=== PATIENT | male | born 1940 | race Hispanic/Latino ===

== ENCOUNTER 2018-04-09 20:45 | Emergency (ER) | payer MEDICARE ==
[2018-04-09 23:21] LABS: #Eosinphils 0.3 thou/uL (0.0-0.7); #Lymphocytes 2.1 thou/uL (1.20-3.40); #Monocytes 0.4 thou/uL (0.11-0.59); #Neutrophils 2.1 thou/uL (1.40-6.50); %Basophils 0.6 % (0.0-1.0); %Eosinophils 6.7 % (0.0-10.0); %Lymphocytes 42.8 % (21.0-51.0); %Monocytes 8.8 % (0.0-10.0); %Neutrophils 41.1 % (42.0-75.0); Hemoglobin 12.1 g/dL (14.0-18.0); Mean Corpuscular HGB CONC 33.3 g/dL (32.0-36.0); Mean Corpuscular Hemoglobin 31.3 pg (27.0-31.0); Mean Corpuscular Volume 94.1 fL (78.0-98.0); Mean Platelet Volume 7.6 fL (7.4-10.4); Platelet Count 168 thou/uL (130-400); RBC Distribution Width 12.4 % (11.5-14.5); Red Blood Cell (RBC) Count 3.86 mill/uL (4.70-6.10)
[2018-04-09 23:39] LABS: Anion Gap 13 mmol/L (10-20); BUN (Urea Nitrogen) 21 mg/dL (8.4-25.7); Calc. Creatinine Clearance 0 mL/min (70-130); Calcium 9.4 mg/dL (7.8-10.44); Carbon Dioxide 24 mmol/L (23-31); Chloride 106 mmol/L (98-107); Estimated GFR-MDRD 55; Glucose 103 mg/dL (83-110); Potassium 3.9 mmol/L (3.5-5.1); Sodium 139 mmol/L (136-145)
[2018-04-10] MEDS ORDERED: Acetaminophen 325 MG TAB ONE (00:50)
--- NOTE | 2018-04-10 09:42 | RAD ---
TWO VIEWS RIGHT TIBIA AND FIBULA: DATE: 04/09/18. HISTORY: Ulcer medial aspect of distal right lower extremity. Increased swelling to right lower extremity. U lceration to right heel. FINDINGS: There is no evidence of a fracture or dislocation. No lytic or sclerotic osseous lesions are identif ied. Calcifications overlie the medial and lateral joint compartments, suggesting chondrocalcinosis. There are also osteophytes at the lateral joint compartment. Vascular calcifications are seen post erior to the knee. IMPRESSION: No acute osseous abnormality. POS: UZIEL
== END 2018-04-10 01:24 | disposition home or self-care (01) ==
LOC: ERS 20:45
DX: L97.511 Non-pressure chronic ulcer of other part of right foot limited to breakdown of skin (principal); M79.604 Pain in right leg; F32.9 Major depressive disorder, single episode, unspecified; F17.210 Nicotine dependence, cigarettes, uncomplicated; I10 Essential (primary) hypertension
CPT/HCPCS: 36415; 80048; 85025

== ENCOUNTER 2018-08-17 13:39 | Outpatient (CLI) | payer MEDICARE ==
--- NOTE | 2018-08-18 01:03 | HP ---
HISTORY OF PRESENT ILLNESS: Mr. Dean Champagne is a very pleasant 78-year-old gentleman, accompanied by his daughter, who presents to the [facility] for evaluation of an ulceration of the right anterior lower leg. The patient was last seen in the [facility]ound Center on 12/15/2011, also for a venous ulceration of the right anterior lower leg. The patient states that the ulceration now present was first noted two years ago. The patient is followed by Dr. Pickering, who referred the patient to the [facility]ound Center for further evaluation and treatment. The patient states that initially a cream was prescribed by Dr. Pickering for the treatment of his ulceration. He states that he has been performing dressing changes for his wound after cleansing with hydrogen peroxide. He states that the dressing changes consist of an [id number] antibiotic ointment followed by gauze secured with tape and more recently, gauze secured with Coban. PAST MEDICAL HISTORY: History of hypertension. PAST SURGICAL HISTORY: Negative. MEDICATIONS: The patient does not have a list of his medications with him today. ALLERGIES: NO KNOWN DIAGNOSED ALLERGIES. SOCIAL HISTORY: Social history is significant for tobacco use of one pack of cigarettes per day for 25 years. The patient admits to a heavy consumption of alcohol on the weekends in the past. He states that he stopped consuming alcohol 3 to 4 years ago. FAMILY HISTORY: Family history is significant for diabetes mellitus. The patient states that his father was diagnosed with diabetes mellitus. Family history is also significant for coronary artery disease. The patient states that his father was diagnosed with coronary artery disease. PHYSICAL EXAMINATION: VITAL SIGNS: Temperature 98.1, pulse 56, and blood pressure 161/69. GENERAL: This is an 78-year-old gentleman, sitting on a chair in the examination room, in no acute distress. HEENT: Normocephalic and atraumatic. NECK: No nuchal rigidity. CHEST: Clear to auscultation. CV: Regular rate and rhythm. ABDOMEN: Soft. EXTREMITIES: An ulceration of the right anterior lower leg is present, which measures approximately 6.0 x 3.5 cm. Granulation tissue is visible within the wound margins. No purulent drainage is associated with the wound. No erythema of the skin surrounding the wound is present. No maceration of the skin of the periwound is noted. A dorsalis pedis pulse or posterior tibial pulse is not palpable on the right. No significant edema of the right foot or lower leg is present on exam today. A dorsalis pedis pulse is palpable on the left. NEUROLOGIC: Grossly nonfocal. ASSESSMENT AND PLAN: 1. Varicose veins of right lower extremity with ulcer. The healing of the ulceration also appears to be complicated by arterial insufficiency. Arrangements will be made for evaluation by Cardiovascular Surgery. I will see Mr. Champagne again after evaluation and any necessary treatment is complete. In the meantime, dressing changes of Xeroform gauze, ABDs, Kerlix and an Tray bandage are to be performed three times per week after cleansing and irrigation. No antibiotics will be prescribed today based upon the appearance of the wound. The patient and his daughter understand and are in agreement with the preceding treatment plan. 2. History of hypertension. Job ID: [id number]
== END 2018-08-17 13:40 | disposition home or self-care (01) ==
LOC: WCC 13:39
PROVIDERS: ATTEND Family Medicine
DX: I83.018 Varicose veins of right lower extremity with ulcer other part of lower leg (principal); L97.919 Non-pressure chronic ulcer of unspecified part of right lower leg with unspecified severity; Z86.79 Personal history of other diseases of the circulatory system

== ENCOUNTER 2018-10-05 05:55 | Day surgery (SDC) | payer MEDICARE ==
[2018-10-04 11:28] VITALS: BMI 29.7
[2018-10-05 06:39] LABS: #Basophils 0.1 thou/uL (0.0-0.2); #Eosinphils 0.3 thou/uL (0.0-0.7); #Lymphocytes 2.1 thou/uL (1.20-3.40); #Monocytes 0.6 thou/uL (0.11-0.59); #Neutrophils 3.3 thou/uL (1.40-6.50); %Basophils 0.9 % (0.0-1.0); %Eosinophils 4.6 % (0.0-10.0); %Lymphocytes 33.5 % (21.0-51.0); %Neutrophils 51.9 % (42.0-75.0); Hemoglobin 12.8 g/dL (14.0-18.0); Mean Corpuscular HGB CONC 31.5 g/dL (32.0-36.0); Mean Corpuscular Hemoglobin 29.5 pg (27.0-31.0); Mean Corpuscular Volume 93.7 fL (78.0-98.0); Mean Platelet Volume 8.1 fL (7.4-10.4); Platelet Count 184 thou/uL (130-400); RBC Distribution Width 12.3 % (11.5-14.5); Red Blood Cell (RBC) Count 4.35 mill/uL (4.70-6.10); White Blood Cell (WBC) Count 6.3 thou/uL (4.8-10.8)
[2018-10-05 06:57] LABS: Anion Gap 12 mmol/L (10-20); BUN (Urea Nitrogen) 24 mg/dL (8.4-25.7); Calc. Creatinine Clearance 55 mL/min (70-130); Calcium 10.2 mg/dL (7.8-10.44); Carbon Dioxide 24 mmol/L (23-31); Chloride 106 mmol/L (98-107); Estimated GFR-MDRD 55; Glucose 88 mg/dL (83-110); Potassium 4.3 mmol/L (3.5-5.1); Sodium 138 mmol/L (136-145)
[2018-10-05] MEDS ORDERED: Fentanyl 100 MCG/2 ML VIAL ONE (07:20)
--- NOTE | 2018-10-05 10:31 | OP ---
DATE OF PROCEDURE: 10/05/2018 PREOPERATIVE DIAGNOSIS: Nonhealing ulcer, right leg. PROCEDURE PERFORMED: Aortogram, bilateral lower extremity runoff. ANESTHESIA: 1% lidocaine. CONTRAST: 40 mL. FLUOROSCOPY: 5 minutes. DESCRIPTION OF PROCEDURE: After prepping and draping the left groin, infiltration with lidocaine was completed. Ultrasound-guided puncture of the common femoral artery was performed. There was good amount of plaque visible. 5-Welsh dilator and sheath were placed following which the runoff of the left leg was obtained through the sheath. Contra catheter was then advanced into the aorta and contrast injections performed. Following which, a RIM catheter was used to guide the wire over the iliac bifurcation. The rim catheter was then exchanged for a glide catheter, which was advanced into the external iliac artery and runoff of the right leg obtained. FINDINGS: The patient had diffuse atherosclerotic changes of aortoiliac segments with the only significant lesion being an 80% stenosis at the junction of the right external and common femoral artery. Both superficial femoral arteries were occluded at their origins and reconstituted distally in the proximal popliteal artery. On the left leg, there appeared to be 3-vessel runoff and on the right leg, a large posterior tibial constituted the runoff and the anterior tibial appeared to be occluded and filled from collaterals throughout the lower leg. The patient tolerated the procedure. Job ID: [id number]
[2018-10-05] MEDS ORDERED: Iopamidol 370 76% 50 ML VIAL FS ONE (16:41)
== END 2018-10-05 14:50 | disposition home or self-care (01) ==
LOC: CCL 05:55
PROVIDERS: ATTEND Thoracic Surgery (Cardiothoracic Vascular Surgery)
PROC: B41D1ZZ Fluoroscopy of Aorta and Bilateral Lower Extremity Arteries using Low Osmolar Contrast (ICD-10-PCS; principal; 2018-10-05)
DX: I70.239 Atherosclerosis of native arteries of right leg with ulceration of unspecified site (principal); L97.919 Non-pressure chronic ulcer of unspecified part of right lower leg with unspecified severity; F17.210 Nicotine dependence, cigarettes, uncomplicated; I10 Essential (primary) hypertension; Z79.82 Long term (current) use of aspirin; Z79.899 Other long term (current) drug therapy
CPT/HCPCS: 75625; 75716; 76942; 80048; 85025; C1725; C1769; J1644; J3010

== ENCOUNTER 2018-10-25 01:07 | Outpatient (CLI) | payer MEDICARE ==
[2018-10-25 15:58] LABS: #Eosinphils 0.4 thou/uL (0.0-0.7); #Lymphocytes 2.2 thou/uL (1.20-3.40); #Monocytes 0.6 thou/uL (0.11-0.59); #Neutrophils 3.3 thou/uL (1.40-6.50); %Basophils 0.5 % (0.0-1.0); %Eosinophils 5.8 % (0.0-10.0); %Lymphocytes 33.2 % (21.0-51.0); %Monocytes 9.4 % (0.0-10.0); %Neutrophils 51.2 % (42.0-75.0); Hemoglobin 12.2 g/dL (14.0-18.0); Mean Corpuscular Volume 93.7 fL (78.0-98.0); Mean Platelet Volume 7.9 fL (7.4-10.4); Platelet Count 211 thou/uL (130-400); RBC Distribution Width 12.5 % (11.5-14.5); Red Blood Cell (RBC) Count 4.07 mill/uL (4.70-6.10); White Blood Cell (WBC) Count 6.5 thou/uL (4.8-10.8)
[2018-10-25 16:31] LABS: Anion Gap 13 mmol/L (10-20); BUN (Urea Nitrogen) 16 mg/dL (8.4-25.7); Calc. Creatinine Clearance 0 mL/min (70-130); Calcium 9.5 mg/dL (7.8-10.44); Carbon Dioxide 25 mmol/L (23-31); Chloride 105 mmol/L (98-107); Estimated GFR-MDRD 61; Potassium 4.1 mmol/L (3.5-5.1); Sodium 139 mmol/L (136-145)
[2018-10-25 17:09] LABS: Glucose 111 mg/dL (83-110)
--- NOTE | 2018-10-26 12:48 | EKG ---
Test Reason : Blood Pressure : / mmHG Vent. Rate : 055 BPM Atrial Rate : 055 BPM P-R Int : 252 ms QRS Dur : 096 ms QT Int : 434 ms P-R-T Axes : 072 -18 005 degrees QTc Int : 415 ms Sinus bradycardia with 1st degree A-V block Otherwise normal ECG When compared with ECG of 16-FEB-2017 11:17, Nonspecific T wave abnormality, worse in Lateral leads Confirmed by DR. Sammie BARRAGAN ([id number]) on 10/26/2018 12:47:51 PM Referred By: YANETH Confirmed By:DR. Sammie BARRAGAN
== END 2018-10-25 01:08 | disposition home or self-care (01) ==
LOC: LABBT 01:07
PROVIDERS: ATTEND Thoracic Surgery (Cardiothoracic Vascular Surgery)
DX: Z01.818 Encounter for other preprocedural examination (principal); I73.9 Peripheral vascular disease, unspecified
CPT/HCPCS: 80048; 85025

== ENCOUNTER 2018-11-29 05:45 | Inpatient (IN) | payer MEDICARE ==
[2018-11-29 06:39] LABS: #Eosinphils 0.3 thou/uL (0.0-0.7); #Lymphocytes 1.8 thou/uL (1.20-3.40); #Monocytes 0.6 thou/uL (0.11-0.59); #Neutrophils 4.3 thou/uL (1.40-6.50); %Basophils 0.3 % (0.0-1.0); %Eosinophils 4.9 % (0.0-10.0); %Lymphocytes 25.4 % (21.0-51.0); %Monocytes 8.1 % (0.0-10.0); %Neutrophils 61.3 % (42.0-75.0); Hemoglobin 11.3 g/dL (14.0-18.0); Mean Corpuscular HGB CONC 31.4 g/dL (32.0-36.0); Mean Corpuscular Hemoglobin 28.7 pg (27.0-31.0); Mean Corpuscular Volume 91.2 fL (78.0-98.0); Mean Platelet Volume 7.2 fL (7.4-10.4); Platelet Count 300 thou/uL (130-400); RBC Distribution Width 12.6 % (11.5-14.5); Red Blood Cell (RBC) Count 3.95 mill/uL (4.70-6.10)
[2018-11-29 06:57] LABS: Anion Gap 9 mmol/L (10-20); BUN (Urea Nitrogen) 23 mg/dL (8.4-25.7); Calc. Creatinine Clearance 63 mL/min (70-130); Calcium 9.7 mg/dL (7.8-10.44); Carbon Dioxide 28 mmol/L (23-31); Chloride 105 mmol/L (98-107); Estimated GFR-MDRD 70; Glucose 92 mg/dL (83-110); Sodium 138 mmol/L (136-145)
[2018-11-29] MEDS ORDERED: Rocuronium Bromide 10 MG/ML (10ML VIAL) ONE (09:09)
[2018-11-29] MEDS ORDERED: Dexamethasone 20 MG/5 ML VIAL ONE (09:09)
[2018-11-29] MEDS ORDERED: PHENYLEPHRINE-NS 100 MCG/ML 10 ML SYRINGE ONE (09:09)
[2018-11-29] MEDS ORDERED: Heparin 10,000 UNITS/ 10 ML VIAL ONE (09:09)
[2018-11-29] MEDS ORDERED: PROPOFOL 200 MG/20 ML VIAL ONE (09:09)
[2018-11-29] MEDS ORDERED: Lidocaine 1% PF 5 ML VIAL ONE (09:09)
[2018-11-29] MEDS ORDERED: Glycopyrrolate 0.2 MG/ML 5 ML SYRINGE ONE (09:09)
[2018-11-29] MEDS ORDERED: Heparin 5,000 UNITS/ML VIAL ONE (09:09)
[2018-11-29] MEDS ORDERED: Metoprolol Tartrate 5 MG/5 ML VIAL ONE (09:09)
[2018-11-29] MEDS ORDERED: Fentanyl 100 MCG/2 ML VIAL ONE (09:57)
[2018-11-29] MEDS: CEFAZOLIN 2 GM in Premix Bag 1 BAG IVPB SCH ×2 (11:46→16:10)
[2018-11-29] MEDS ORDERED: traMADol HCl 50 MG TAB PO PRN (12:13)
[2018-11-29] MEDS ORDERED: hydrALAZINE 20 MG/ML VIAL SLOW IVP PRN (12:13)
[2018-11-29] MEDS ORDERED: Ondansetron PF 4 MG/2 ML Vial IVP PRN (12:13)
[2018-11-29] MEDS ORDERED: Acetaminophen 325 MG TAB PO PRN (12:13)
[2018-11-29] MEDS ORDERED: Promethazine HCl 25 MG/ML VIAL PR PRN (12:13)
[2018-11-29] MEDS ORDERED: Fentanyl 100 MCG/2 ML VIAL SLOW IVP PRN (12:13)
--- NOTE | 2018-11-29 12:45 | OP ---
DATE OF PROCEDURE: 11/29/2018 PREOPERATIVE DIAGNOSES: Ischemic/venous stasis ulcer of the right lower extremity with rest pain. PROCEDURE PERFORMED: Right common femoral to infrageniculate popliteal artery bypass with reversed saphenous vein. ANESTHESIA: General. ESTIMATED BLOOD LOSS: 150. FINDINGS: The patient had a heavily diseased common femoral artery that was not endarterectomized. The saphenous vein was variably varicosed throughout its length requiring several repair areas. The suprageniculate popliteal artery was felt to be poor quality on external palpation and as such, the infrageniculate popliteal artery was exposed and was not very good quality, either measuring probably about 3 mm. DESCRIPTION OF PROCEDURE: After adequate anesthesia had been obtained, the patient was prepped and draped in the common femoral artery was initially explored in the right groin, mobilizing the right external iliac artery under the inguinal ligament to a soft area. The profunda femoral artery was not exposed. Following this, the saphenous vein was exposed through multiple incisions. Endovascular vein harvest was not felt to be suitable for this patient due to known varicosities. After removing the vein to the mid calf, heparin saline was used to dilate it. Branches were ligated and as noted multiple varicosities were repaired with horizontal mattress 6-0 Prolene sutures. Following this, the tunnel was created from a suprageniculate to the infrageniculate popliteal artery. The patient was heparinized. External iliac artery clamped as was the common femoral artery. Arteriotomy was performed following which a 2.5 cm arteriotomy was completed to allow entry above the known stenosis just at the inguinal ligament. The distal saphenous vein was then anastomosed to the surrounding arteriotomy with a running 6- 0 Prolene suture. It was then brought through its tunnel posterior to the knee and the distal anastomosis was completed with good Doppler signals obtained good hemostasis and partially reversing heparin with protamine . Job ID: [id number]
[2018-11-29] MEDS: Sodium Chloride 0.9% 1,000 ML IV SCH (16:11)
[2018-11-29] MEDS: Atorvastatin Calcium 10 MG TAB PO SCH (21:10)
[2018-11-30] MEDS: Sodium Chloride 0.9% 1,000 ML IV SCH (03:58)
[2018-11-30] MEDS: Aspirin 325 MG TAB PO SCH (08:24)
[2018-11-30] MEDS: CEFAZOLIN 2 GM in Premix Bag 1 BAG IVPB SCH (08:25)
[2018-11-30] MEDS: Atorvastatin Calcium 10 MG TAB PO SCH (20:46)
[2018-12-01] MEDS: HYDROcodone/Acetaminophen 5/325 mg Tablet PO PRN ×2 (01:14→21:48)
[2018-12-01] MEDS: Aspirin 325 MG TAB PO SCH (09:57)
[2018-12-01 12:59] VITALS: BMI 25.1
[2018-12-01] MEDS: Atorvastatin Calcium 10 MG TAB PO SCH (21:49)
[2018-12-02] MEDS: Aspirin 325 MG TAB PO SCH (09:35)
[2018-12-02] MEDS: Atorvastatin Calcium 10 MG TAB PO SCH (20:32)
[2018-12-03] MEDS: Aspirin 325 MG TAB PO SCH (08:38)
[2018-12-03] MEDS ORDERED: Polyethylene Glycol 3350 17 GM Packet PO PRN (16:44)
[2018-12-03] MEDS ORDERED: Milk Of Magnesia 30 ML UDCUP PO PRN (16:44)
[2018-12-03] MEDS: Atorvastatin Calcium 10 MG TAB PO SCH (20:31)
[2018-12-04 07:37] VITALS: BP 122/41; TEMP 98.4
[2018-12-04] MEDS: Aspirin 325 MG TAB PO SCH (08:33)
--- NOTE | 2018-12-04 14:15 | PRG ---
DATE OF SERVICE: 12/04/2018 SUBJECTIVE: Mr. Champagne has been offered both transfer to rehab and discharge home and has refused both. He and his family have had numerous interactions with both the Social Work and Rehab staff and myself in regard to disposition. They have refused any change in his current status. Job ID: [id number]
== END 2018-12-04 12:30 | disposition home or self-care (01) | DRG 253 ==
LOC: SURG A 05:45 → SURG B 17:41
PROVIDERS: ADMIT Thoracic Surgery (Cardiothoracic Vascular Surgery); ATTEND Thoracic Surgery (Cardiothoracic Vascular Surgery)
PROC: 041K09L Bypass Right Femoral Artery to Popliteal Artery with Autologous Venous Tissue, Open Approach (ICD-10-PCS; principal; 2018-11-29)
PROC: 06BP0ZZ Excision of Right Saphenous Vein, Open Approach (ICD-10-PCS; 2018-11-29)
DX: I70.238 Atherosclerosis of native arteries of right leg with ulceration of other part of lower leg (principal); I87.011 Postthrombotic syndrome with ulcer of right lower extremity; L97.819 Non-pressure chronic ulcer of other part of right lower leg with unspecified severity; I10 Essential (primary) hypertension; F17.210 Nicotine dependence, cigarettes, uncomplicated; Z79.82 Long term (current) use of aspirin
CPT/HCPCS: 80048; 85025; 86850; 86900; 86901; J0360; J1100; J1642; J1644; J2001; J2704; J3010

== ENCOUNTER 2018-12-07 10:44 | Outpatient (CLI) | payer MEDICARE ==
[~2018-12-07 10:44] MED LIST: Sodium Chloride 0.9% 15 ML NEB ONE
--- NOTE | 2018-12-07 12:11 | PRG ---
DATE OF SERVICE: 12/07/2018 HISTORY: Mr. Dean Champagne is a very pleasant 78-year-old gentleman, who presents to the [facility]ound Center for evaluation of a large wound of the right anterior lower leg. Since the patient's last visit in the Wound Center on 08/17/2018, Mr. Champagne has undergone right common femoral to infrageniculate popliteal artery bypass with reversed saphenous vein on 11/29/[address] Jaden Sibley. The patient's son, who accompanies Mr. Champagne today states that the wound of the right anterior lower leg has markedly improved in its appearance since undergoing surgery. Upon discharge from [facility], the patient was referred to the Wound Center for further evaluation and treatment. PHYSICAL EXAMINATION: VITAL SIGNS: Temperature 97.3, pulse 57, respirations 17, blood pressure 128/59. EXTREMITIES: A large wound of the right anterior lower leg is present, which measures approximately 7.2 x 8.4 cm. Granulation tissue is visible within the wound margins. Nonviable tissue present within the wound margins was debrided with an excisional full-thickness debridement with the use of a curette. No purulent drainage is associated with the wound. No erythema of the skin surrounding the wound is present. No maceration of the skin of the periwound is noted. A posterior tibial pulse is easily palpable on the right. No significant edema of the right foot or lower leg is appreciated on exam today. ASSESSMENT AND PLAN: 1. Ulceration of right anterior lower leg as described above. The patient recently underwent right common femoral to infrageniculate popliteal artery bypass with reversed saphenous vein by Dr. Jaden Sibley on 11/29/2018. As stated above, an easily palpable posterior tibial artery is present on exam today. Dressing changes of Medihoney, 4x4s, and ABD, Kerlix and an Tray bandage are to be performed 3 times per week after cleansing and irrigation with the assistance of Home Health. I will see Mr. Champagne again in 2 weeks. 2. History of hypertension. Job ID: [id number]
== END 2018-12-07 10:45 | disposition home or self-care (01) ==
LOC: WCC 10:44
PROVIDERS: ATTEND Family Medicine
DX: L97.919 Non-pressure chronic ulcer of unspecified part of right lower leg with unspecified severity (principal); I10 Essential (primary) hypertension
CPT/HCPCS: 11042; 11045; A4218

== ENCOUNTER 2024-08-02 06:16 | Observation (INO) | payer MEDICARE ==
[2024-08-02] MEDS ORDERED: Acetaminophen 325 MG TAB PO PRN (07:16)
[2024-08-02] MEDS ORDERED: hydrALAZINE 20 MG/ML VIAL SLOW IVP PRN (07:22)
[2024-08-02] MEDS ORDERED: Nicotine 14 MG PATCH TD SCH (07:30)
[2024-08-02] MEDS ORDERED: Enoxaparin 40 MG (0.4 mL) SYRINGE ONE (08:35)
[2024-08-02] MEDS: Enoxaparin 40 MG (0.4 mL) SYRINGE SC SCH (08:38)
[2024-08-02 08:50] LABS: Hemoglobin A1c 5.5 % (4.0-6.0)
[2024-08-02] MEDS ORDERED: Ipratropium/Albuterol 3 ML NEB NEB PRN (09:14)
[2024-08-02] MEDS: Nicotine 7 MG PATCH TD SCH (09:50)
[2024-08-02] MEDS ORDERED: Losartan 25 MG TAB ONE (10:17)
[2024-08-02] MEDS: Losartan 25 MG TAB PO SCH (10:21)
[2024-08-02 12:31] LABS: Anion Gap 13 mmol/L (10-20); BUN (Urea Nitrogen) 14 mg/dL (8.4-25.7); Calc. Creatinine Clearance 53 mL/min (70-130); Carbon Dioxide 25 mmol/L (23-31); Chloride 107 mmol/L (98-107); Estimated GFR 81; Glucose 78 mg/dL (83-110); Potassium 3.7 mmol/L (3.5-5.1); Sodium 141 mmol/L (136-145)
[2024-08-02] MEDS ORDERED: Furosemide 20 MG (2 mL) VIAL ONE (13:08)
[2024-08-02] MEDS: Furosemide 20 MG (2 mL) VIAL SLOW IVP SCH (13:18)
[2024-08-02 15:01] VITALS: BMI 19.5
[2024-08-02] MEDS: hydrALAZINE 20 MG/ML VIAL SLOW IVP PRN (15:12)
[2024-08-02] MEDS: Diclofenac 1% 50 GM TOPICAL GEL TP SCH (15:18)
[2024-08-03 06:01] LABS: #Basophils 0.04 10x3/uL (0.0-0.2); %Basophils 0.8 % (0.0-1.0); %Eosinophils 4.1 % (0.0-10.0); %Lymphocytes 27.6 % (21.0-51.0); %Monocytes 8.5 % (0.0-10.0); %Neutrophils 58.8 % (42.0-75.0); Hematocrit 36.7 % (42.0-52.0); Hemoglobin 11.7 g/dL (14.0-18.0); Mean Corpuscular HGB CONC 31.9 g/dL (32.0-36.0); Mean Corpuscular Hemoglobin 30.1 pg (27.0-31.0); Mean Corpuscular Volume 94.3 fL (78.0-98.0); Mean Platelet Volume 11.1 fL (7.4-10.4); Platelet Count 181 10x3/uL (130-400); RBC Distribution Width 14.9 % (11.5-14.5); Red Blood Cell (RBC) Count 3.89 mill/uL (4.70-6.10)
[2024-08-03] MEDS ORDERED: hydrALAZINE 20 MG/ML VIAL SLOW IVP PRN (06:15)
[2024-08-03] MEDS: Losartan 25 MG TAB PO SCH (08:33)
[2024-08-03 10:23] LABS: Anion Gap 13 mmol/L (10-20); BUN (Urea Nitrogen) 18 mg/dL (8.4-25.7); Calc. Creatinine Clearance 50 mL/min (70-130); Carbon Dioxide 23 mmol/L (23-31); Chloride 104 mmol/L (98-107); Estimated GFR 83; Glucose 124 mg/dL (83-110); Potassium 3.3 mmol/L (3.5-5.1); Sodium 137 mmol/L (136-145)
[2024-08-03 11:49] VITALS: TEMP 97.8
[2024-08-03 13:43] VITALS: BP 108/53
[2024-08-03] MEDS: Potassium Chloride 20 MEQ TAB PO SCH (14:49)
== END 2024-08-03 15:57 | disposition home or self-care (01) ==
LOC: ERS 06:16 → ERHOLD 07:16 → OBS 14:58
PROVIDERS: ADMIT Family Medicine; ATTEND Family Medicine
PROC: B24BZZZ Ultrasonography of Heart with Aorta (ICD-10-PCS; principal; 2024-08-02)
DX: J81.1 Chronic pulmonary edema (principal); J90 Pleural effusion, not elsewhere classified; I11.0 Hypertensive heart disease with heart failure; I50.31 Acute diastolic (congestive) heart failure; I87.2 Venous insufficiency (chronic) (peripheral); I35.0 Nonrheumatic aortic (valve) stenosis; D64.9 Anemia, unspecified; M10.9 Gout, unspecified; F17.200 Nicotine dependence, unspecified, uncomplicated; R79.89 Other specified abnormal findings of blood chemistry; Z79.899 Other long term (current) drug therapy
CPT/HCPCS: 71045; 71275; 80048 ×2; 83036; 83880; 84484; 85025; 93005; 93306; 96372 ×2; 96374; 96375 ×2; 96376; 97116; 99285 ×2; G0378 ×3; J0360 ×2; J1650; J1940 ×2; Q9967; 36415; 80053; 84443

== ENCOUNTER 2024-08-22 19:12 | Inpatient (IN) | payer MEDICARE ==
[2024-08-22 20:56] LABS: #Basophils 0.03 10x3/uL (0.0-0.2); %Basophils 0.4 % (0.0-1.0); %Eosinophils 0.7 % (0.0-10.0); %Lymphocytes 16.9 % (21.0-51.0); %Neutrophils 70.7 % (42.0-75.0); Hematocrit 32.3 % (42.0-52.0); Hemoglobin 10.2 g/dL (14.0-18.0); Mean Corpuscular HGB CONC 31.6 g/dL (32.0-36.0); Mean Corpuscular Hemoglobin 29.8 pg (27.0-31.0); Mean Corpuscular Volume 94.4 fL (78.0-98.0); Mean Platelet Volume 10.6 fL (7.4-10.4); Platelet Count 196 10x3/uL (130-400); RBC Distribution Width 14.5 % (11.5-14.5); Red Blood Cell (RBC) Count 3.42 mill/uL (4.70-6.10)
[2024-08-22 21:03] LABS: ALT (SGPT) 36 U/L (8-55); AST (SGOT) 56 U/L (5-34); Albumin 2.9 g/dL (3.4-4.8); Alkaline Phosphatase 83 U/L (40-110); Anion Gap 14 mmol/L (10-20); BUN (Urea Nitrogen) 29 mg/dL (8.4-25.7); Bilirubin, Total 0.3 mg/dL (0.2-1.2); CK (CPK) 141 U/L (30-200); Calc. Creatinine Clearance 0 mL/min (70-130); Calcium 9.7 mg/dL (7.8-10.44); Carbon Dioxide 21 mmol/L (23-31); Chloride 107 mmol/L (98-107); Estimated GFR 50; Globulin 4.5 g/dL (2.4-3.5); Glucose 119 mg/dL (83-110); Potassium 3.9 mmol/L (3.5-5.1); Protein, Total 7.4 g/dL (5.8-8.1); Sodium 138 mmol/L (136-145)
[2024-08-22 22:10] LABS: INR-International Normal Ratio 1.2; Prothrombin Time 15.1 sec (12.0-14.7)
[2024-08-22 22:11] LABS: PTT 38.1 sec (22.9-36.1)
[2024-08-22 22:14] LABS: Lipase 15 U/L (8-78); Magnesium 2.1 mg/dL (1.6-2.6)
[2024-08-22 22:19] LABS: Troponin I 0.027 ng/mL (< 0.028)
[2024-08-22] MEDS ORDERED: fentaNYL 50 mcg/mL 1 mL Vial ONE (23:25)
[2024-08-23] MEDS ORDERED: Furosemide 40 MG (4 mL) VIAL ONE (02:57)
[2024-08-23 04:47] LABS: Bacteria/HPF None Seen HPF (None Seen); Bilirubin Negative (Negative); Blood, Urine 2+ (Negative); CAUTI Indications for Culture Dysuria,urgency,freq; Clarity Clear (Clear); Glucose, Urine (Dipstick) Normal (Negative); Ketone, Urine Negative (Negative); Leukocyte Negative Leu/uL (Negative); Nitrite Negative (Negative); Protein, Urine (Dipstick) Negative (Neg-Trace); Specific Gravity, Urine 1.028 (1.002-1.036); Squamous Epithelial 0-3 HPF (0-3); Urobilinogen Normal mg/dL (Less than 2); WBC/HPF 0-3 HPF (0-3)
[2024-08-23 04:48] LABS: Urine Culture Reflex No No
[2024-08-23 05:36] VITALS: BMI 19.2
[2024-08-23 07:39] LABS: Creatinine, Urine 67.31 mg/dL (63-166)
[2024-08-23] MEDS: Nicotine 21 MG PATCH TD SCH (08:27)
[2024-08-23] MEDS: Allopurinol 300 MG TAB PO SCH (08:27)
[2024-08-23] MEDS: Cholecalciferol 1,000 UNITS (25 MCG) TAB PO SCH (08:27)
[2024-08-23] MEDS: Enoxaparin 30 MG (0.3 mL) SYRINGE SC SCH (08:27)
[2024-08-23] MEDS: Losartan 25 MG TAB PO SCH (08:28)
[2024-08-23] MEDS ORDERED: Furosemide 40 MG (4 mL) VIAL SLOW IVP SCH (09:00)
[2024-08-23] MEDS ORDERED: Iopamidol-370 76% 500 ML MDV (1 ML CHARGE) ONE (11:58)
[2024-08-23] MEDS: Acetaminophen 325 MG TAB PO PRN (17:07)
[2024-08-23] MEDS: Diclofenac 1% 50 GM TOPICAL GEL TP PRN (18:06)
[2024-08-23] MEDS ORDERED: Losartan 25 MG TAB PO SCH (19:15)
[2024-08-24 07:13] LABS: #Basophils Less than 0.03 10x3/uL (0.0-0.2); %Basophils 0.3 % (0.0-1.0); %Eosinophils 2.1 % (0.0-10.0); %Lymphocytes 16.2 % (21.0-51.0); %Monocytes 7.6 % (0.0-10.0); %Neutrophils 73.4 % (42.0-75.0); Hematocrit 33.3 % (42.0-52.0); Hemoglobin 10.7 g/dL (14.0-18.0); Mean Corpuscular HGB CONC 32.1 g/dL (32.0-36.0); Mean Corpuscular Volume 93.3 fL (78.0-98.0); Mean Platelet Volume 10.2 fL (7.4-10.4); Platelet Count 225 10x3/uL (130-400); RBC Distribution Width 14.4 % (11.5-14.5); Red Blood Cell (RBC) Count 3.57 mill/uL (4.70-6.10)
[2024-08-24 07:25] LABS: Anion Gap 14 mmol/L (10-20); BUN (Urea Nitrogen) 25 mg/dL (8.4-25.7); Calc. Creatinine Clearance 46 mL/min (70-130); Calcium 9.8 mg/dL (7.8-10.44); Carbon Dioxide 23 mmol/L (23-31); Chloride 104 mmol/L (98-107); Estimated GFR 77; Glucose 93 mg/dL (83-110); Potassium 4.2 mmol/L (3.5-5.1); Sodium 137 mmol/L (136-145)
[2024-08-24] MEDS: Losartan 25 MG TAB PO SCH (09:15)
[2024-08-25 04:55] LABS: #Basophils 0.03 10x3/uL (0.0-0.2); %Basophils 0.5 % (0.0-1.0); %Eosinophils 4.3 % (0.0-10.0); %Lymphocytes 16.8 % (21.0-51.0); %Monocytes 10.5 % (0.0-10.0); %Neutrophils 67.4 % (42.0-75.0); Hematocrit 31.3 % (42.0-52.0); Hemoglobin 10.1 g/dL (14.0-18.0); Mean Corpuscular HGB CONC 32.3 g/dL (32.0-36.0); Mean Corpuscular Hemoglobin 29.8 pg (27.0-31.0); Mean Corpuscular Volume 92.3 fL (78.0-98.0); Mean Platelet Volume 10.4 fL (7.4-10.4); Platelet Count 232 10x3/uL (130-400); RBC Distribution Width 14.5 % (11.5-14.5); Red Blood Cell (RBC) Count 3.39 mill/uL (4.70-6.10)
[2024-08-25 05:18] LABS: ALT (SGPT) 28 U/L (8-55); AST (SGOT) 33 U/L (5-34); Albumin 2.3 g/dL (3.4-4.8); Alkaline Phosphatase 79 U/L (40-110); Anion Gap 13 mmol/L (10-20); BUN (Urea Nitrogen) 23 mg/dL (8.4-25.7); Bilirubin, Total 0.4 mg/dL (0.2-1.2); Calc. Creatinine Clearance 51 mL/min (70-130); Calcium 9.1 mg/dL (7.8-10.44); Carbon Dioxide 24 mmol/L (23-31); Chloride 105 mmol/L (98-107); Estimated GFR 84; Globulin 4.1 g/dL (2.4-3.5); Glucose 100 mg/dL (83-110); Potassium 3.8 mmol/L (3.5-5.1); Protein, Total 6.4 g/dL (5.8-8.1); Sodium 138 mmol/L (136-145)
[2024-08-26 04:44] LABS: #Basophils Less than 0.03 10x3/uL (0.0-0.2); %Basophils 0.4 % (0.0-1.0); %Eosinophils 4.4 % (0.0-10.0); %Lymphocytes 22.7 % (21.0-51.0); %Monocytes 10.4 % (0.0-10.0); %Neutrophils 61.9 % (42.0-75.0); Hematocrit 31.9 % (42.0-52.0); Mean Corpuscular HGB CONC 31.3 g/dL (32.0-36.0); Mean Corpuscular Hemoglobin 29.7 pg (27.0-31.0); Mean Corpuscular Volume 94.7 fL (78.0-98.0); Mean Platelet Volume 11.8 fL (7.4-10.4); Platelet Count 185 10x3/uL (130-400); RBC Distribution Width 14.6 % (11.5-14.5); Red Blood Cell (RBC) Count 3.37 mill/uL (4.70-6.10)
[2024-08-26 05:13] LABS: ALT (SGPT) 29 U/L (8-55); AST (SGOT) 35 U/L (5-34); Albumin 2.4 g/dL (3.4-4.8); Alkaline Phosphatase 77 U/L (40-110); Anion Gap 15 mmol/L (10-20); BUN (Urea Nitrogen) 24 mg/dL (8.4-25.7); Bilirubin, Total 0.3 mg/dL (0.2-1.2); Calc. Creatinine Clearance 50 mL/min (70-130); Calcium 9.2 mg/dL (7.8-10.44); Carbon Dioxide 20 mmol/L (23-31); Chloride 105 mmol/L (98-107); Estimated GFR 81; Globulin 4.3 g/dL (2.4-3.5); Glucose 103 mg/dL (83-110); Potassium 4.5 mmol/L (3.5-5.1); Protein, Total 6.7 g/dL (5.8-8.1); Sodium 135 mmol/L (136-145)
[2024-08-27 05:46] LABS: #Basophils 0.03 10x3/uL (0.0-0.2); %Basophils 0.5 % (0.0-1.0); %Eosinophils 6.4 % (0.0-10.0); %Lymphocytes 26.1 % (21.0-51.0); %Monocytes 11.3 % (0.0-10.0); %Neutrophils 55.5 % (42.0-75.0); Hematocrit 32.3 % (42.0-52.0); Hemoglobin 10.1 g/dL (14.0-18.0); Mean Corpuscular HGB CONC 31.3 g/dL (32.0-36.0); Mean Corpuscular Hemoglobin 29.8 pg (27.0-31.0); Mean Corpuscular Volume 95.3 fL (78.0-98.0); Mean Platelet Volume 10.3 fL (7.4-10.4); Platelet Count 264 10x3/uL (130-400); RBC Distribution Width 14.6 % (11.5-14.5); Red Blood Cell (RBC) Count 3.39 mill/uL (4.70-6.10)
[2024-08-27 06:11] LABS: ALT (SGPT) 39 U/L (8-55); AST (SGOT) 45 U/L (5-34); Albumin 2.3 g/dL (3.4-4.8); Alkaline Phosphatase 78 U/L (40-110); Anion Gap 11 mmol/L (10-20); BUN (Urea Nitrogen) 24 mg/dL (8.4-25.7); Bilirubin, Total 0.2 mg/dL (0.2-1.2); Calc. Creatinine Clearance 50 mL/min (70-130); Calcium 9.5 mg/dL (7.8-10.44); Carbon Dioxide 22 mmol/L (23-31); Chloride 107 mmol/L (98-107); Estimated GFR 84; Globulin 4.4 g/dL (2.4-3.5); Glucose 94 mg/dL (83-110); Potassium 4.3 mmol/L (3.5-5.1); Protein, Total 6.7 g/dL (5.8-8.1); Sodium 136 mmol/L (136-145)
[2024-08-27] MEDS: Enoxaparin 40 MG (0.4 mL) SYRINGE SC SCH (09:08)
[2024-08-28 06:02] LABS: #Basophils 0.03 10x3/uL (0.0-0.2); %Basophils 0.5 % (0.0-1.0); %Eosinophils 3.4 % (0.0-10.0); %Lymphocytes 18.2 % (21.0-51.0); %Monocytes 8.1 % (0.0-10.0); %Neutrophils 69.3 % (42.0-75.0); Hematocrit 32.5 % (42.0-52.0); Hemoglobin 10.3 g/dL (14.0-18.0); Mean Corpuscular HGB CONC 31.7 g/dL (32.0-36.0); Mean Corpuscular Hemoglobin 29.7 pg (27.0-31.0); Mean Corpuscular Volume 93.7 fL (78.0-98.0); Platelet Count 313 10x3/uL (130-400); RBC Distribution Width 14.5 % (11.5-14.5); Red Blood Cell (RBC) Count 3.47 mill/uL (4.70-6.10)
[2024-08-28 06:44] LABS: ALT (SGPT) 42 U/L (8-55); AST (SGOT) 45 U/L (5-34); Albumin 2.5 g/dL (3.4-4.8); Alkaline Phosphatase 80 U/L (40-110); Anion Gap 14 mmol/L (10-20); BUN (Urea Nitrogen) 28 mg/dL (8.4-25.7); Bilirubin, Total 0.3 mg/dL (0.2-1.2); Calc. Creatinine Clearance 39 mL/min (70-130); Calcium 9.7 mg/dL (7.8-10.44); Carbon Dioxide 23 mmol/L (23-31); Chloride 106 mmol/L (98-107); Estimated GFR 64; Globulin 4.7 g/dL (2.4-3.5); Glucose 100 mg/dL (83-110); Protein, Total 7.2 g/dL (5.8-8.1); Sodium 139 mmol/L (136-145)
[2024-08-28 12:56] VITALS: BP 111/50; TEMP 97.3
[2024-08-28 13:40] VITALS: BMI 19.1
== END 2024-08-28 16:46 | disposition home or self-care (01) | DRG 948 ==
LOC: ERS 19:12 → SURG B 08-23 03:24 → INTOOBSV 08-23 03:24 → OBSVTOIN 08-25 07:17
PROVIDERS: ADMIT Student in an Organized Health Care Education/Training Program; ATTEND Student in an Organized Health Care Education/Training Program
DX: R53.81 Other malaise (principal); E44.0 Moderate protein-calorie malnutrition; N17.9 Acute kidney failure, unspecified; I50.32 Chronic diastolic (congestive) heart failure; R29.6 Repeated falls; I11.0 Hypertensive heart disease with heart failure; Z79.899 Other long term (current) drug therapy; I35.0 Nonrheumatic aortic (valve) stenosis; M10.9 Gout, unspecified; Z98.890 Other specified postprocedural states; F17.210 Nicotine dependence, cigarettes, uncomplicated; Z66 Do not resuscitate; F41.9 Anxiety disorder, unspecified; F32.A Depression, unspecified; G31.84 Mild cognitive impairment of uncertain or unknown etiology
CPT/HCPCS: 36415; 70450; 71045; 71260; 72125; 74177; 80048; 80053; 81001; 82550; 82570; 83605; 83690; 83735; 83880; 84484; 84540; 85025; 85610; 85730; 93005; 96372; 96374; 97139; G0378; J1650; J1940; J3010; Q9967

== ENCOUNTER 2025-06-07 11:44 | Emergency (ER) | payer MEDICARE ==
[2025-06-07 12:53] LABS: Bacteria/HPF 2+ HPF (None Seen); CAUTI Indications for Culture Alt mental st,lethar; Glucose, Urine (Dipstick) Normal (Negative); Leukocyte 500 Leu/uL (Negative); Protein, Urine (Dipstick) 20 mg/dL (Neg-Trace); RBC/HPF 0-3 HPF (0-3); Specific Gravity, Urine 1.013 (1.002-1.036); WBC/HPF Greater than 50 HPF (0-3)
[2025-06-07 12:54] LABS: Urine Culture Reflex Yes Yes
[2025-06-07 13:15] LABS: ALT (SGPT) 30 U/L (Less than 45); AST (SGOT) 51 U/L (11-34); Albumin 2.6 g/dL (3.1-4.5); Alkaline Phosphatase 84 U/L (40-110); Anion Gap 28 mmol/L (10-20); BUN (Urea Nitrogen) 33 mg/dL (8.4-25.7); Bilirubin, Total 0.2 mg/dL (0.3-1.2); Calc. Creatinine Clearance 0 mL/min (70-130); Calcium 9.3 mg/dL (7.8-10.44); Carbon Dioxide 11 mmol/L (23-31); Chloride 105 mmol/L (98-107); Globulin 4.2 g/dL (2.4-3.5); Glucose 161 mg/dL (83-110); Potassium 5.3 mmol/L (3.5-5.1); Sodium 139 mmol/L (136-145)
[2025-06-07 13:21] LABS: Analyzer IN Cardio ER; Base Excess -13.1 mEq/L (-2.0 to +3.0); Calcium, Ionized (venous) 1.12 mmol/L (1.16-1.32); Chloride (VBG) 105 mmol/L (98-106); Hematocrit-VBG 22 % (42.0-52.0); Hemoglobin (Hb) 7.5 g/dL (12.6-17.4); Potassium (VBG) 4.64 mmol/L (3.70-5.30); Sodium 137 mmol/L (133-146)
[2025-06-07 13:36] LABS: #Basophils 0.03 10x3/uL (0.0-0.2); #Eosinophils Less than 0.03 10x3/uL (0.0-0.7); #Monocytes 0.78 10x3/uL (0.11-0.59); #Neutrophils 12.63 10x3/uL (1.40-6.50); %Basophils 0.2 % (0.0-1.0); %Eosinophils 0.1 % (0.0-10.0); %Lymphocytes 7.5 % (21.0-51.0); %Monocytes 5.3 % (0.0-10.0); %Neutrophils 86.5 % (42.0-75.0); Hematocrit 21.9 % (42.0-52.0); Hemoglobin 6.3 g/dL (14.0-18.0); Mean Corpuscular Hemoglobin 28.9 pg (27.0-31.0); Mean Corpuscular Volume 100.5 fL (78.0-98.0); Platelet Count 376 10x3/uL (130-400); Red Blood Cell (RBC) Count 2.18 mill/uL (4.70-6.10); White Blood Cell (WBC) Count 14.60 10x3/uL (4.8-10.8)
[2025-06-07] MEDS ORDERED: Heparin 5,000 UNITS/ML VIAL ONE (13:37)
[2025-06-07 13:38] LABS: Anisocytosis SLIGHT = 6-15 cells HPF (0-5); Burr Cells MODERATE= 6-15 cells HPF (0-1); Macrocytosis SLIGHT = 6-15 cells HPF (0-5); Platelet Adequacy Comment Platelets Normal; Poikilocytosis SLIGHT = 6-15 cells HPF (0-5); Polychromasia MODERATE = 3-4 cells HPF (0-2); Schistocytes SLIGHT = 2-5 cells HPF (0-1)
[2025-06-07] MEDS ORDERED: Aspirin Chewable 81 MG TAB ONE (13:38)
[2025-06-07 14:27] LABS: INR-International Normal Ratio 1.1; Prothrombin Time 14.7 sec (12.0-14.7)
[2025-06-07 14:28] LABS: PTT 30.5 sec (22.9-36.1)
[2025-06-07] MEDS ORDERED: NOREPINEPHRINE 8 MG/250 ML-D5W 250 ML ONE ×2 (14:35→22:31)
[2025-06-07] MEDS ORDERED: cefTRIAXone (ROCEPHIN) 1 GM VIAL ONE (14:52)
[2025-06-07] MEDS ORDERED: Vancomycin 1.5 GM / NS 500ML VIAL-2-BAG IVPB SCH (15:15)
[2025-06-11 13:44] LABS: Actual Bicarbonate (HCO3v) 12.1 mEq/L (22-28)
== END 2025-06-07 15:03 | disposition short-term general hospital (02) ==
LOC: EDBD 11:44 → MERGE 11:44 → ERS 11:44 → ERHOLD 15:03 → UNDOADMIN 15:03 → UNDODISIN 21:18
DX: A41.9 Sepsis, unspecified organism (principal); R65.21 Severe sepsis with septic shock; N39.0 Urinary tract infection, site not specified; I50.9 Heart failure, unspecified; I35.0 Nonrheumatic aortic (valve) stenosis; I49.3 Ventricular premature depolarization; D64.9 Anemia, unspecified; Z87.440 Personal history of urinary (tract) infections; Z79.899 Other long term (current) drug therapy; Z79.82 Long term (current) use of aspirin
CPT/HCPCS: 36430; 70450; 71045; 72125; 80053; 81001; 82805; 83605; 84484 ×2; 85025; 85610; 85730; 86850; 86900; 86901; 86920; 87040; 87086; 93005; 94760; J0696; J1644 ×2; J2060; J7030; P9016; 36415

== ENCOUNTER 2025-06-07 21:31 | Inpatient (IN) | payer OTHER ==
[2025-06-07] MEDS ORDERED: Bisacodyl 10 MG SUPP PR PRN (23:43)
[2025-06-07] MEDS ORDERED: diphenhydrAMINE 50 MG/ML VIAL IVP PRN (23:45)
[2025-06-07] MEDS ORDERED: Scopolamine 1 mg/72 hour Patch TOP PRN (23:45)
[2025-06-07] MEDS ORDERED: Hyoscyamine SL 0.125 MG TAB SL PRN (23:45)
[2025-06-07] MEDS ORDERED: Ondansetron PF 4 MG/2 ML Vial IVP PRN (23:45)
[2025-06-08 00:25] VITALS: BMI 21.2
[2025-06-08] MEDS: NOREPINEPHRINE 8 MG/250 ML-D5W 250 ML IVPB SCH (08:20)
[2025-06-08 20:59] VITALS: BP 117/51; TEMP 98.3
== END 2025-06-09 14:42 | disposition short-term general hospital (02) | DRG 951 ==
LOC: CCU 21:31 → MERGE 21:31 → IMCU/EMU 21:39
PROVIDERS: ADMIT Family Medicine; ATTEND Family Medicine
DX: Z51.5 Encounter for palliative care (principal)
CPT/HCPCS: 93005; J2060; J2270

== ENCOUNTER 2025-06-09 14:58 | Inpatient (IN) | payer MEDICARE ==
[~2025-06-09 14:58] MED LIST changes: +Iopamidol-370 76% 500 ML MDV (1 ML CHARGE) ONE; -Sodium Chloride 0.9% 15 ML NEB ONE
[2025-06-09] MEDS ORDERED: cefTRIAXone (ROCEPHIN) 2 GM VIAL ONE (16:09)
[2025-06-09 16:14] LABS: #Basophils 0.04 10x3/uL (0.0-0.2); #Eosinophils 0.03 10x3/uL (0.0-0.7); #Monocytes 0.36 10x3/uL (0.11-0.59); #Neutrophils 7.46 10x3/uL (1.40-6.50); %Basophils 0.4 % (0.0-1.0); %Eosinophils 0.3 % (0.0-10.0); %Lymphocytes 10.4 % (21.0-51.0); %Monocytes 4.0 % (0.0-10.0); %Neutrophils 83.8 % (42.0-75.0); Hematocrit 26.4 % (42.0-52.0); Hemoglobin 8.1 g/dL (14.0-18.0); Mean Corpuscular Hemoglobin 28.2 pg (27.0-31.0); Mean Corpuscular Volume 92.0 fL (78.0-98.0); Platelet Count 149 10x3/uL (130-400); Red Blood Cell (RBC) Count 2.87 mill/uL (4.70-6.10); White Blood Cell (WBC) Count 8.92 10x3/uL (4.8-10.8)
[2025-06-09 16:31] LABS: Acetaminophen Less than 10 mcg/mL (Less than 10); Lipase 15 U/L (8-78); Magnesium 2.2 mg/dL (1.6-2.6); Salicylate Less than 8.0 mg/dL (Less than 8.0)
[2025-06-09 16:34] LABS: ALT (SGPT) 3042 U/L (Less than 45); AST (SGOT) 3365 U/L (11-34); Albumin 2.2 g/dL (3.1-4.5); Alkaline Phosphatase 170 U/L (40-110); Anion Gap 17 mmol/L (10-20); BUN (Urea Nitrogen) 57 mg/dL (8.4-25.7); Bilirubin, Total 0.9 mg/dL (0.3-1.2); CK (CPK) 241 U/L (30-200); Calc. Creatinine Clearance 0 mL/min (70-130); Calcium 8.3 mg/dL (7.8-10.44); Carbon Dioxide 20 mmol/L (23-31); Chloride 110 mmol/L (98-107); Globulin 3.8 g/dL (2.4-3.5); Glucose 81 mg/dL (83-110); Potassium 5.0 mmol/L (3.5-5.1); Sodium 142 mmol/L (136-145)
[2025-06-09 16:45] LABS: Bacteria/HPF 2+ HPF (None Seen); CAUTI Indications for Culture Alt mental st,lethar; Glucose, Urine (Dipstick) Normal (Negative); Leukocyte 500 Leu/uL (Negative); Protein, Urine (Dipstick) 30 mg/dL (Neg-Trace); Specific Gravity, Urine 1.016 (1.002-1.036)
[2025-06-09 16:51] LABS: Cocaine Metabolite Screen Negative (Negative); THC/Cannabinoid Screen Negative (Negative); Tricyclic Screen Negative (Negative)
[2025-06-09 16:56] LABS: WBC/HPF 21-50 HPF (0-3)
[2025-06-09 16:57] LABS: RBC/HPF 0-3 HPF (0-3)
[2025-06-09 16:58] LABS: Urine Culture Reflex Yes Yes
[2025-06-09] MEDS ORDERED: Furosemide 100 MG (10 mL) VIAL ONE (18:03)
[2025-06-09] MEDS ORDERED: Heparin 5,000 UNITS/ML VIAL ONE (18:03)
[2025-06-09 18:07] LABS: PTT 43.7 sec (22.9-36.1)
[2025-06-09 18:08] LABS: INR-International Normal Ratio 1.9; Prothrombin Time 21.6 sec (12.0-14.7)
[2025-06-09] MEDS ORDERED: Heparin 10,000 UNITS/ 10 ML VIAL SLOW IVP SCH (20:15)
[2025-06-09] MEDS: Digoxin 0.5 MG/2 ML AMP SLOW IVP SCH (21:09)
[2025-06-09 22:14] LABS: Hematocrit 29.9 % (42.0-52.0); Hemoglobin 9.0 g/dL (14.0-18.0); Platelet Count 174 10x3/uL (130-400)
[2025-06-09 23:57] VITALS: BMI 23.1
[2025-06-10] MEDS: Heparin 10,000 UNITS/ 10 ML VIAL SLOW IVP SCH (02:27)
[2025-06-10 07:35] LABS: #Basophils 0.05 10x3/uL (0.0-0.2); #Eosinophils Less than 0.03 10x3/uL (0.0-0.7); #Monocytes 0.52 10x3/uL (0.11-0.59); #Neutrophils 9.45 10x3/uL (1.40-6.50); %Basophils 0.5 % (0.0-1.0); %Eosinophils 0.2 % (0.0-10.0); %Lymphocytes 8.2 % (21.0-51.0); %Monocytes 4.7 % (0.0-10.0); %Neutrophils 85.6 % (42.0-75.0); Hematocrit 33.0 % (42.0-52.0); Hemoglobin 10.1 g/dL (14.0-18.0); Mean Corpuscular Hemoglobin 28.1 pg (27.0-31.0); Mean Corpuscular Volume 91.7 fL (78.0-98.0); Platelet Count 201 10x3/uL (130-400); Red Blood Cell (RBC) Count 3.60 mill/uL (4.70-6.10); White Blood Cell (WBC) Count 11.03 10x3/uL (4.8-10.8)
[2025-06-10 07:58] LABS: ALT (SGPT) 2675 U/L (Less than 45); AST (SGOT) 2185 U/L (11-34); Albumin 2.6 g/dL (3.1-4.5); Alkaline Phosphatase 200 U/L (40-110); Anion Gap 15 mmol/L (10-20); BUN (Urea Nitrogen) 52 mg/dL (8.4-25.7); Bilirubin, Total 1.0 mg/dL (0.3-1.2); Calc. Creatinine Clearance 36 mL/min (70-130); Calcium 9.0 mg/dL (7.8-10.44); Carbon Dioxide 21 mmol/L (23-31); Chloride 109 mmol/L (98-107); Globulin 4.2 g/dL (2.4-3.5); Glucose 85 mg/dL (83-110); Magnesium 2.2 mg/dL (1.6-2.6); Potassium 4.1 mmol/L (3.5-5.1); Sodium 141 mmol/L (136-145)
[2025-06-10] MEDS: PNEUMOC 20-VAL CONJ-DIP CRM/PF 0.5 ML SYRINGE IM ONE (10:44)
[2025-06-10] MEDS: cefTRIAXone\\ROCEPHIN 1 GM in Sodium Chloride 0.9% 100 ML IVPB SCH (16:29)
[2025-06-11 06:30] LABS: Magnesium 2.1 mg/dL (1.6-2.6)
[2025-06-11] MEDS ORDERED: Ondansetron PF 4 MG/2 ML Vial IVP PRN (07:03)
[2025-06-11] MEDS ORDERED: Atropine Sulfate 1% Ophth Soln 5 ml Bottle SL PRN (07:03)
[2025-06-11] MEDS ORDERED: Hyoscyamine SL 0.125 MG TAB SL PRN (07:03)
[2025-06-11] MEDS ORDERED: Scopolamine 1 mg/72 hour Patch TD PRN (07:03)
[2025-06-11] MEDS ORDERED: Glycopyrrolate 0.4 MG/ 2 ML VIAL SLOW IVP PRN (07:18)
[2025-06-12 07:39] LABS: #Basophils 0.04 10x3/uL (0.0-0.2); #Eosinophils 0.28 10x3/uL (0.0-0.7); #Monocytes 0.66 10x3/uL (0.11-0.59); #Neutrophils 4.67 10x3/uL (1.40-6.50); %Basophils 0.6 % (0.0-1.0); %Eosinophils 3.9 % (0.0-10.0); %Lymphocytes 20.7 % (21.0-51.0); %Monocytes 9.1 % (0.0-10.0); %Neutrophils 64.5 % (42.0-75.0); Hematocrit 30.3 % (42.0-52.0); Hemoglobin 8.9 g/dL (14.0-18.0); Mean Corpuscular Hemoglobin 27.6 pg (27.0-31.0); Mean Corpuscular Volume 94.1 fL (78.0-98.0); Platelet Count 186 10x3/uL (130-400); Red Blood Cell (RBC) Count 3.22 mill/uL (4.70-6.10); White Blood Cell (WBC) Count 7.24 10x3/uL (4.8-10.8)
[2025-06-12 07:57] LABS: ALT (SGPT) 1458 U/L (Less than 45); AST (SGOT) 574 U/L (11-34); Albumin 2.3 g/dL (3.1-4.5); Alkaline Phosphatase 170 U/L (40-110); Anion Gap 13 mmol/L (10-20); BUN (Urea Nitrogen) 29 mg/dL (8.4-25.7); Bilirubin, Total 1.3 mg/dL (0.3-1.2); Calc. Creatinine Clearance 43 mL/min (70-130); Calcium 8.6 mg/dL (7.8-10.44); Carbon Dioxide 22 mmol/L (23-31); Chloride 111 mmol/L (98-107); Globulin 3.8 g/dL (2.4-3.5); Glucose 113 mg/dL (83-110); Potassium 3.5 mmol/L (3.5-5.1); Sodium 142 mmol/L (136-145)
[2025-06-12 11:43] LABS: PTT 127.1 sec (22.9-36.1)
[2025-06-15 17:07] VITALS: BMI 19.1
[2025-06-16 11:22] VITALS: BP 155/62; TEMP 97.9
== END 2025-06-16 11:24 | disposition hospice, home (50) | DRG 871 ==
LOC: ERS 14:58 → PCU 18:41
PROVIDERS: ADMIT Student in an Organized Health Care Education/Training Program; ATTEND Student in an Organized Health Care Education/Training Program
DX: A41.9 Sepsis, unspecified organism (principal); G93.41 Metabolic encephalopathy; I21.4 Non-ST elevation (NSTEMI) myocardial infarction; K72.00 Acute and subacute hepatic failure without coma; R57.0 Cardiogenic shock; N39.0 Urinary tract infection, site not specified; I50.32 Chronic diastolic (congestive) heart failure; N17.9 Acute kidney failure, unspecified; M10.9 Gout, unspecified; I48.91 Unspecified atrial fibrillation; F17.210 Nicotine dependence, cigarettes, uncomplicated; D64.9 Anemia, unspecified; E03.9 Hypothyroidism, unspecified; Z86.73 Personal history of transient ischemic attack (TIA), and cerebral infarction without residual deficits; Z98.890 Other specified postprocedural states; Z79.899 Other long term (current) drug therapy; Z79.82 Long term (current) use of aspirin
CPT/HCPCS: 36415; 70450; 71045; 71275; 74177; 80053; 80306; 80307; 81001; 82140; 82550; 83605; 83690; 83735; 83880; 84145; 84439; 84443; 84484; 85025; 85610; 85730; 87040; 87086; 93005; 93306; 96361; 96365; 96374; 96375; 97139; J0696; J1160; J1644; J1940; Q9967